=== PATIENT | female | born 1970 | race Caucasian/White ===

== ENCOUNTER 2024-03-15 20:23 | Emergency (ER) | payer OTHER ==
[2024-03-15] MEDS ORDERED: Lidocaine 2% 5 ML SDV INFILT ONE (20:24)
[2024-03-15] MEDS: Diphtheria,Pertussis(Acell),Tetanus Vaccine 0.5 ML Syringe IM ONE (20:51)
== END 2024-03-15 21:12 | disposition home or self-care (01) ==
LOC: FB.ED 20:23
DX: S61.211A Laceration without foreign body of left index finger without damage to nail, initial encounter (principal); W26.0XXA Contact with knife, initial encounter
CPT/HCPCS: 12001; 90471; 90715; 99283-25